=== PATIENT | female | born 1965 ===

== ENCOUNTER 2018-04-13 07:49 | Outpatient (CLI) | payer OTHER ==
[~2018-04-13] VITALS: Ht 152.4 cm; Wt 59.9 kg
== END 2018-04-13 08:05 | disposition home or self-care (01) ==
LOC: OFIC 805 07:49
DX: R42 Dizziness and giddiness (principal); J31.0 Chronic rhinitis; H61.23 Impacted cerumen, bilateral; H90.6 Mixed conductive and sensorineural hearing loss, bilateral